=== PATIENT | female | born 1995 | race Caucasian/White ===

== ENCOUNTER 2018-04-03 13:00 | Inpatient (IN) | payer OTHER ==
[2018-04-03] MEDS ORDERED: NS 0.9% 1000 ML* 1,000 ML IV ONE ×3 (13:20→15:37)
[2018-04-03] MEDS ORDERED: Ondansetron INJ* 2 MG/ML VIAL IV ONE (13:20)
[2018-04-03] MEDS ORDERED: Ketorolac INJ* 30 MG/ML 1 ML VIAL IV PUSH ONE (13:20)
--- NOTE | 2018-04-03 13:35 | ED ---
Abdominal Pain/Female - HPI Summary HPI Summary: Pt. is a 22 y.o female who presents to the ER for fever, vomiting, and diarrhea. Pt. states that she started on Augmentin on Thursday for a sinus infection. Patient states that prior to Thursday she was having sinus pain for 3 weeks. Patient states her sinus pain is improving but started with nausea and vomiting 2 days ago and now has profuse watery diarrhea. Patient notes fever, chills and diffuse abdominal cramping. She has no past medical history. Denies sick contacts or recent travels. Symptoms are moderate in severity. Patient states she's having a bowel movement about every 20 minutes today. Denies passing blood in stools. No history of Crohn's disease, IBS, ulcerative colitis. No current modifying factors. - History of Current Complaint Chief Complaint: EDAbdPain Stated Complaint: DIARRHEA/NAUSEA/ABD PAIN Time Seen by Provider: 04/03/18 13:13 Hx Obtained From: Patient Pain Intensity: 6 Allergies/Adverse Reactions: Allergies Allergy/AdvReac Type Severity Reaction Status Date / Time No Known Allergies Allergy Verified 04/03/18 13:09 Home Medications: Home Medications Norelgestromin/Ethin.estradiol [Xulane Patch] 1 each TOPICAL WEEKLY 04/03/18 [ History Confirmed 04/03/18] PMH/Surg Hx/FS Hx/Imm Hx Previously Healthy: Yes Infectious Disease History: No Infectious Disease History: Denies: Traveled Outside the [place] in Last 30 Days - Family History Known Family History: Positive: Non-Contributory - Social History Occupation: Student Lives: Dormitory/Roommates Review of Systems Positive: Fever, Chills Eyes: Negative Positive: Other - Improving sinus pain Cardiovascular: Negative Positive: Cough. Negative: Shortness Of Breath Positive: Abdominal Pain, Vomiting, Diarrhea, Nausea Genitourinary: Negative Negative: dysuria Musculoskeletal: Negative Skin: Negative Neurological: Negative All Other Systems Reviewed And Are Negative: Yes Physical Exam Triage Information Reviewed: Yes Vital Signs On Initial Exam: Initial Vitals Temp Pulse Resp BP Pulse Ox 100.3 F 161 14 119/50 97 04/03/18 13:04 04/03/18 13:04 04/03/18 13:04 04/03/18 13:04 04/03/18 13:04 Vital Signs Reviewed: Yes Appearance: Positive: Thin - Pt. sitting up in bed, appears tired but nontoxic. Aunt present. Skin: Positive: Warm, Dry Head/Face: Positive: Normal Head/Face Inspection Eyes: Positive: Normal, EOMI, FRAN, Conjunctiva Clear ENT: Positive: Pharynx normal, TMs normal, Other - Oral mucosa is very dry and lips are Mild maxillary tenderness Neck: Positive: Supple, Nontender, No Lymphadenopathy. Negative: Nuchal Rigidity Respiratory/Lung Sounds: Positive: Clear to Auscultation, Breath Sounds Present Cardiovascular: Positive: Tachycardia Abdomen Description: Positive: Other: - Mild tenderness to all quadrants. Guarding Neurological: Positive: Normal, CN Intact II-III Psychiatric: Positive: Affect/Mood Appropriate Diagnostics - Vital Signs Vital Signs Temp Pulse Resp BP Pulse Ox 04/03/18 13:04 100.3 F 161 14 119/50 97 - Laboratory Result Diagrams: 04/03/18 13:31 04/03/18 13:31 Lab Statement: Any lab studies that have been ordered have been reviewed, and results considered in the medical decision making process. Abdominal Pain Fem Course/Dx - Course Course Of Treatment: Patient presenting with vomiting, diarrhea, fever and abdominal cramping. Low-grade fever in the ER of 100.3F, HR 161bpm, BP 119/50, O2 saturation 97% on RA which is normal. Clinically pt. looks very dehyrated. Will start on 2L NSS. Toradol ordered for pain and fever, zofran. Pending labs and stool cultures. Concerned for c diff. HR has improved but pt. has remained consistent tachycardia. CBC shows normal H an H and WBC. Na low at 128, K 3.1, Cl 91, anion gap 15, glucose 185 and CRP 237. Pending c diff at this time. Given pt.s dehydration, frequent diarrhea and ongoing tachycardia hospitalist was consulted for admission. I spoke with Dr. Vines and he has accepted pt. for admission. He would like pt. started on PO vancomycin. Results and plan discussed with pt. and parents who are now present. Pt. states she is feeling a bit better. - Diagnoses Provider Diagnoses: Diarrhea, Dehydration, Hyponatremia Discharge - Sign-Out/Discharge Documenting (check all that apply): Patient Departure - Discharge Plan Condition: Stable Disposition: ADMITTED TO [facility] Referrals: No Primary Care Phys,NOPCP [Primary Care Provider] - - Billing Disposition and Condition Condition: STABLE Disposition: Admitted to [facility]
[2018-04-03 13:45] LABS: Hematocrit 37 % (35-47); Hemoglobin 12.8 g/dl (12.0-16.0); Mean Corpuscular HGB Conc 34 g/dl (31-36); Mean Corpuscular Hemoglobin 28 pg (27-31); Mean Corpuscular Volume 81 fL (80-97); Mean Platelet Volume 7.1 fL (7.4-10.4); Platelet Count 300 10^3/ul (150-450); Red Blood Count 4.56 10^6/ul (4.00-5.40); Red Cell Distribution Width 13 % (10.5-15); White Blood Count 9.8 10^3/ul (3.5-10.8)
[2018-04-03 14:00] LABS: EGFR Non-African American 80.1 (>60)
[2018-04-03 14:43] LABS: ABS Basophils 0 10^3/ul (0-0.2); ABS Eosinophils 0 10^3/ul (0-0.6); ABS Lymphocytes 0.5 10^3/ul (1.0-4.8); ABS Monocytes 0.5 10^3/ul (0-0.8); ABS Neutrophils 8.8 10^3/ul (1.5-7.7)
[2018-04-03 14:47] LABS: ABS Neutrophils 9.3 10^3/ul (1.5-7.7)
[2018-04-03 15:12] LABS: Urine Appearance Cloudy; Urine Blood 1+ (Negative); Urine Color Yellow; Urine Ketones Negative (Negative); Urine Protein Negative (Negative); Urine Red Blood Cell Absent (Absent); Urine Specific Gravity 1.002 (1.010-1.030); Urine Urobilinogen Negative (Negative); Urine White Blood Cell 1+(6-10/hpf) (Absent)
[2018-04-03] MEDS ORDERED: Potassium Chloride LIQUID* 20 MEQ PACKET PO ONE (16:12)
[2018-04-03] MEDS ORDERED: Vancomycin(*) 500 MG VIAL ONE (17:00)
[2018-04-03] MEDS ORDERED: Ondansetron INJ* 2 MG/ML VIAL IV PRN (17:13)
[2018-04-03] MEDS ORDERED: oxyCODONE/Acetamin 5/325 MG* TAB PO PRN (17:13)
[2018-04-03] MEDS ORDERED: Acetaminophen TAB* 325 MG PO PRN (17:13)
[2018-04-03] MEDS: metroNIDAZOLE IV 500 MG/100ML* 500 MG/100 ML BAG IVPB SCH (18:25)
[2018-04-03] MEDS: Ciprofloxacin 400MG IVPREMIX(* 400 MG/200 ML BAG IVPB SCH (18:25)
[2018-04-03] MEDS ORDERED: Iohexol 300* (CONTRAST) 10 ML SDV IV ONE (19:15)
[2018-04-03] MEDS: NS 0.9% 1000 ML* 1,000 ML IV SCH (19:54)
--- NOTE | 2018-04-03 20:41 | HP ---
ADMISSION HISTORY AND PHYSICAL: DATE OF ADMISSION: 04/03/18 PRIMARY CARE PROVIDER: [facility]. HEALTHCARE PROXIES: Her parents. CODE STATUS: Full. SOURCE OF INFORMATION: History obtained from interview with the patient and her parents. RELIABILITY: Excellent. CHIEF COMPLAINT: Diarrhea. HISTORY OF PRESENT ILLNESS: This is a 22-year-old female with no significant past medical history except for anxiety, not on medications, who was last feeling well approximately 3 weeks prior to presentation before she started feeling an illness that felt like "a cold" with 2 weeks of sinus congestion, cough, rhinorrhea, and sore throat. She gradually started to get better; however, on recent trip to [place] about a week and half ago, she started to get chills and felt cold, which was approximately 7 days prior to presentation. She noted discomfort, described it as rhinorrhea, mucus, and a cough with a fever of 103 that lasted for approximately 3 days from Thursday through Thursday. On Thursday, prior to admission, she went to urgent care where she was diagnosed with a sinus infection and was started on Augmentin twice daily. Her sinuses started to feel better, she had less phlegm, and her fever abated by Thursday. , 2 days prior to presentation around 9 p.m., she started noting crampy abdominal pain associated with nausea and she was having more difficulty eating with decreased appetite. She had 2 to 3 episodes of emesis between Thursday and and on Thursday was feeling more bloated with associated nausea. Around 9 p.m. day prior to presentation, started to have diarrhea every 2 to 3 hours, which increased over the night and into to the day of presentation to every 20 minutes, associated with pain not relived with defecation and not associated with mucus. She described the pain at that time as a throbbing pain, but because of the increased frequency of diarrhea, the patient presented to the emergency room. In the emergency room, the patient was pleasant, still experiencing diarrhea frequently. She had no further episodes of emesis. Hospitalist service was consulted for admission. PAST MEDICAL HISTORY: Includes ureteral reflux as a baby that resolved without intervention; self-reported anxiety, not on medication. MEDICATIONS: She is on a control patch. ALLERGIES: No known drug allergies. FAMILY HISTORY: Significant for esophageal cancer in her father, IBS in her mother. SOCIAL HISTORY: No tobacco. Drinks 2 alcoholic drinks per month. 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 REVIEW OF SYSTEMS: As per HPI. Otherwise, all other systems negative. PHYSICAL EXAMINATION GENERAL: Sitting at approximately 30 degrees in bed, interactive, pleasant, in no apparent distress. VITAL SIGNS: When seen by this author, 127/74, heart rate was 101, respiratory rate is 15, 98% on room air, T-max in the emergency room is 100.3. HEENT: Her oropharynx is clear. She has dry mucous membranes. Sclerae are anicteric. NECK: She has non-elevated JVD. She has no cervical or supraclavicular lymphadenopathy. LUNGS: Clear to auscultation. HEART: She has a tachycardic heart rate without murmurs, rubs, or gallops. ABDOMEN: Soft. Diffuse tenderness throughout. Mild distention. No rebound or guarding. Positive bowel sounds throughout. EXTREMITIES: Warm and well perfused. No clubbing, cyanosis, or edema. She has less than 2 second cap refill on all of her fingers. NEUROLOGIC: She is alert and oriented x3. Her cranial nerves are intact. PSYCHIATRIC: She has no apparent anxiety, agitation, or depression. DIAGNOSTIC STUDIES/LAB DATA: Labs reviewed, notable for a white blood cell count of 9.8 with a left shift, 84% neutrophils, 10% bands. Sodium of 128, potassium of 3.1, chloride 91, glucose 185. CRP is 237. Beta hCG is negative. Urine is bland, 1+ blood, 1+ white blood cell count, no bacteria. C. diff exam is currently negative and fecal lactoferrin is negative. Data reviewed. Chest x-ray: No acute cardiopulmonary findings. ASSESSMENT AND PLAN: This is a 22-year-old female presenting with a 3-week syndrome of upper respiratory symptoms punctuated by several days of fever, nausea and vomiting worsening to include frequent diarrhea, now presenting to the emergency room. 1. Diarrhea. In the absence of fecal lactoferrin, infectious etiology is significantly lower. In the setting of recent antibiotics, suspicion for C. diff was high, although PCR is negative, which has very good sensitivity. We will not treat for C. diff at this time. She does not meet sepsis criteria as there is no end organ damage and it is not entirely clear that she has an infection other than the left shift, elevated CRP, nonspecific and fevers. It is quite possible that the same viral syndrome she has been battling for the last several weeks is now the etiology of her gastrointestinal illness. We will admit to the hospital OBV, treat symptomatically with fluids, continue to monitor with telemetry to target lower heart rate, repeat labs in the morning. If worsening leukocytosis and/or other source identified, we would recommend low threshold for antibiotics. We will check 2 -view abdominal film now, could potentially move to CAT scan of the abdomen, although we will try to withhold this test if not necessary given high risk in a young female. 2. Fever. As indicated above, no clear source. Elevated CRP in the setting of recent viral syndrome versus sinus infection. We will check influenza rapid now. Continue to trend. Can consider ID consultation if no improvement. 3. Tachycardia in the setting of dehydration. Fluids as above. 4. Hyponatremia. Suspect hypovolemic. Continue with IV fluids as above. Recheck in the morning. 5. Hypokalemia. The patient received replacement in the emergency room. 6. DVT prophylaxis: Low risk. Ambulate ad leila. [id number]/[facility] #: [id number] [facility]NER[facility]
[2018-04-03] MEDS: NS 0.9% 1000 ML* 2,000 ML IV ONE ×2 (22:34→23:18)
[2018-04-03] MEDS ORDERED: Ketorolac INJ* 15 MG/ML 1 ML VIAL IV PUSH ONE (22:44)
--- NOTE | 2018-04-03 23:19 | PN ---
Hospitalist Progress Note Date of Service: 04/03/[address] scan findings. Discussed resulted with family and patient. Patient examined noted to be tender in the LLQ and RLQ. Pt abd mildly distended. Pt lungs cta, tachy. Pt with no rebound tenderness or guarding. Called Surgeon on-call. At this point scan reviewed by surgery and at this point plan is to avoid ng tube unless vomiting and to continued iv abx and ivf, patient will be seen in morning by surgery. Vs are noted to be 104/60 tachy 130 and temp 101.3 Updated Attending as well on plan of care for tonight and to call surgery with any further concerns.
[2018-04-04] MEDS: NS 0.9% 1000 ML* 1,000 ML IV SCH ×2 (02:03→05:32)
[2018-04-04] MEDS: metroNIDAZOLE IV 500 MG/100ML* 500 MG/100 ML BAG IVPB SCH ×2 (02:26→13:07)
[2018-04-04] MEDS ORDERED: Morphine VIAL* 4 MG/ML VIAL (1 ml vial) IV PRN ×2 (02:49→09:03)
[2018-04-04] MEDS ORDERED: Ketorolac INJ* 15 MG/ML 1 ML VIAL IV PUSH PRN (02:51)
[2018-04-04 05:04] LABS: ABS Basophils 0 10^3/ul (0-0.2); ABS Eosinophils 0 10^3/ul (0-0.6); ABS Lymphocytes 0.7 10^3/ul (1.0-4.8); ABS Monocytes 0.6 10^3/ul (0-0.8); ABS Neutrophils 10.5 10^3/ul (1.5-7.7); ABS Nucleated RBC 0 10^3/ul; Eosinophil % 0 % (0-6); Hematocrit 29 % (35-47); Hemoglobin 9.8 g/dl (12.0-16.0); Lymphocyte % 5.6 % (25-47); Mean Corpuscular HGB Conc 34 g/dl (31-36); Mean Corpuscular Hemoglobin 29 pg (27-31); Mean Corpuscular Volume 83 fL (80-97); Mean Platelet Volume 6.9 fL (7.4-10.4); Nucleated Red Blood Cells % 0; Platelet Count 232 10^3/ul (150-450); Red Blood Count 3.43 10^6/ul (4.00-5.40); Red Cell Distribution Width 13 % (10.5-15); White Blood Count 11.8 10^3/ul (3.5-10.8)
[2018-04-04 05:26] LABS: EGFR Non-African American 102.3 (>60)
[2018-04-04] MEDS: Ciprofloxacin 400MG IVPREMIX(* 400 MG/200 ML BAG IVPB SCH (05:32)
[2018-04-04] MEDS ORDERED: Ondansetron INJ* 2 MG/ML VIAL IV ONE (09:01)
[2018-04-04] MEDS ORDERED: Dexamethasone IV* 4 MG/ML 1 ML (4 MG) IV SLOW PU ONE (09:01)
[2018-04-04] MEDS ORDERED: Buffered Lidocaine 0.9% SYRIN* 5 ML/SYR SYRINGE INTRADERM ONE (09:01)
[2018-04-04] MEDS ORDERED: Famotidine IV* 10 MG/ML 2 ML (20 mg) IV ONE (09:01)
[2018-04-04] MEDS ORDERED: DiMENhydriNATE IV* 50 MG/ML VIAL IV PUSH PRN (09:03)
[2018-04-04] MEDS ORDERED: PROCHLORPERAZINE INJ 5 MG/ML 2 ML VIAL IV PRN (09:03)
[2018-04-04] MEDS ORDERED: fentaNYL* 50 MCG/ML 2 ML VIAL (100 MCG VIAL) IV PRN (09:03)
[2018-04-04] MEDS ORDERED: Naloxone* 0.4 MG/ML 1 ML VIAL IV PRN (09:03)
[2018-04-04] MEDS ORDERED: fentaNYL* 50 MCG/ML 2 ML VIAL (100 MCG VIAL) ONE (09:07)
[2018-04-04] MEDS ORDERED: Midazolam* 1 MG/ML 5 ML VIAL (5 MG) ONE (09:07)
[2018-04-04] MEDS ORDERED: Atracurium* 10 MG/ML 10 ML VIAL ONE (09:07)
[2018-04-04] MEDS ORDERED: KETAMINE HCL* 50 MG/ML 10 ML VIAL ONE (09:07)
[2018-04-04] MEDS ORDERED: ZOSYN 3.375 GM x ONE DOSE over 30 miuntes IVPB ×2 (10:00)
[2018-04-04] MEDS ORDERED: Bupivacaine 0.25% EPI 200,000* 30 ML SDV ONE (10:21)
[2018-04-04] MEDS ORDERED: Bupivacaine 0.25% SDV PF* 10 ML VIAL INJ ONE (10:21)
[2018-04-04] MEDS ORDERED: Dexamethasone IV* 4 MG/ML 1 ML (4 MG) ONE (10:43)
[2018-04-04] MEDS ORDERED: Succinylcholine* 20 MG/ML 10 ML VIAL ONE (10:43)
[2018-04-04] MEDS ORDERED: Propofol* 10 MG/ML 20 ML BTL IV PUSH ONE (10:43)
[2018-04-04] MEDS ORDERED: Glycopyrrolate IV* 0.2 MG/ML 1 ML VIAL ONE (10:43)
[2018-04-04] MEDS ORDERED: Famotidine IV* 10 MG/ML 2 ML (20 mg) ONE (10:43)
[2018-04-04] MEDS ORDERED: Neostigmine Methylsulfate* 1 MG/ML 10 ML VIAL (1 mg/ml) ONE (10:43)
[2018-04-04] MEDS ORDERED: Ondansetron INJ* 2 MG/ML VIAL ONE (10:43)
[2018-04-04] MEDS ORDERED: Phenylephrine INJ* 10 MG/ML 1 ML VIAL (10 MG) ONE (10:56)
[2018-04-04] MEDS ORDERED: Lidocaine 2% PF * 5 ML VIAL ONE (10:56)
[2018-04-04] MEDS ORDERED: Morphine VIAL* 10 MG/ML 1 ML VIAL ONE (11:21)
[2018-04-04] MEDS ORDERED: HYDROmorphone INJ* 2 MG/ML CARPUJECT SYRINGE IV PRN (11:58)
[2018-04-04] MEDS ORDERED: Acetaminophen TAB* 325 MG PO PRN (11:58)
[2018-04-04] MEDS ORDERED: oxyCODONE/Acetamin 5/325 MG* TAB PO PRN (11:58)
--- NOTE | 2018-04-04 12:04 | BRIEFOPN ---
Brief Operative Note - Surgery Procedures: Pre-OP Diagnoses: abdominal pain Post-op Diagnosis: acute appendicitis- perforated, peritonitis Procedure: Laparoscopic appendectomy, abdominal washout Surgeon: Jd Asst: none Anethesia: GETA EBL: minimal IVF: crystalloid Specimen: appendix Drains: #7 Fadi at pelvis Honeycutt 400cc and removed at end of case
[2018-04-04] MEDS ORDERED: Levalbuterol 0.63MG/3ML NEB* UNIT OF USE INH ONE (12:08)
[2018-04-04] MEDS: Heparin VIAL(*) 5000 UNITS/ML VIAL (FIVE THOUSAND) SUBCUT SCH ×2 (14:54→23:07)
[2018-04-04] MEDS: Piperacillin/Tazobactam VIAL*) 3.375 GM in NS 0.9% 100 ML* 100 ML IVPB SCH ×2 (15:46→23:01)
[2018-04-04] MEDS ORDERED: NORELGESTROMIN TRANSDERM SCH (16:00)
[2018-04-04] MEDS ORDERED: ETHINYL ESTRADIOL TRANSDERM SCH (16:00)
[2018-04-04] MEDS: Ketorolac INJ* 30 MG/ML 1 ML VIAL IV PRN (18:03)
--- NOTE | 2018-04-04 19:20 | PN ---
Subjective Date of Service: 04/04/18 Interval History: Pt examined briefly before being taken for appendicitis surgery. Post op she has been ambulating. 5/10 abdominal pain. No nausea. States her initial symptoms (other than URI symptoms) were abdominal pain last night along with reduced appetites, then diarrhea next night Thursday. Objective Active Medications: Acetaminophen (Tylenol Tab*) 650 mg PO Q4H PRN PRN Reason: Pain Or Temperature >101 F Heparin Sodium (Porcine) (Heparin Vial(*)) 5,000 units SUBCUT Q8HR [facility] Last Admin: 04/04/18 14:54 Dose: 5,000 units Hydromorphone HCl (Dilaudid Inj*) 0.5 mg IV Q1H PRN PRN Reason: Pain - severe Lactated Ringer's (Lactated Ringers 1000 Ml Bag*) 1,000 mls @ 100 mls/hr IV PER RATE [facility] Last Admin: 04/04/18 13:30 Dose: 100 mls/hr Piperacillin Sod/Tazobactam (Sod 3.375 gm/ Sodium Chloride) 100 mls @ 25 mls/ hr IVPB Q8H [facility] Last Admin: 04/04/18 15:46 Dose: 25 mls/hr Influenza Virus Vaccine (Fluarix *Quad* 2018-*) 0.5 ml IM .ONCE ONE Stop: 04/05/18 09:01 Ketorolac Tromethamine (Toradol Inj*) 30 mg IV Q6H PRN PRN Reason: PAIN Stop: 04/06/18 12:00 Last Admin: 04/04/18 18:03 Dose: 30 mg Pto: Norelgestromin And Ethinyl Estradiol Td 150/35mcg/Day 1 dose TRANSDERM WEEKLY [facility] Last Admin: 04/04/18 15:54 Dose: 1 dose Ondansetron HCl (Zofran Inj*) 4 mg IV Q4H PRN PRN Reason: NAUSEA/VOMITING Oxycodone/Acetaminophen (Percocet 5/325 Tab*) 1 tab PO Q4H PRN PRN Reason: PAIN Vital Signs - 8 hr 04/04/18 04/04/18 04/04/18 11:56 12:00 12:05 Temperature 98.4 F Pulse Rate Respiratory 20 16 16 Rate Blood Pressure (mmHg) O2 Sat by Pulse Oximetry 04/04/18 04/04/18 04/04/18 12:10 12:15 12:16 Temperature Pulse Rate 110 106 Respiratory 16 34 33 Rate Blood Pressure 127/74 (mmHg) O2 Sat by Pulse 100 100 Oximetry 04/04/18 04/04/18 04/04/18 12:30 12:45 13:00 Temperature Pulse Rate 111 103 92 Respiratory 16 16 Rate Blood Pressure 131/81 134/76 129/70 (mmHg) O2 Sat by Pulse 100 100 100 Oximetry 04/04/18 04/04/18 04/04/18 13:01 13:21 13:33 Temperature 97.3 F Pulse Rate 85 102 Respiratory 24 18 Rate Blood Pressure 110/67 (mmHg) O2 Sat by Pulse 100 100 Oximetry 04/04/18 04/04/18 04/04/18 13:56 14:36 15:18 Temperature 97.3 F 98.3 F 97.7 F Pulse Rate 102 91 87 Respiratory 24 22 18 Rate Blood Pressure 110/67 106/62 112/61 (mmHg) O2 Sat by Pulse 100 99 100 Oximetry 04/04/18 04/04/18 04/04/18 15:42 15:43 16:00 Temperature Pulse Rate Respiratory 18 20 Rate Blood Pressure (mmHg) O2 Sat by Pulse 97 Oximetry 04/04/18 17:31 Temperature 97.6 F Pulse Rate 90 Respiratory 16 Rate Blood Pressure 107/67 (mmHg) O2 Sat by Pulse 97 Oximetry Oxygen Devices in Use Now: Nasal Cannula Appearance: NAD Eyes: No Scleral Icterus, PERRLA Ears/Nose/Mouth/Throat: NL Teeth, Lips, Gums, Mucous Membranes Moist Neck: NL Appearance and Movements; NL JVP Respiratory: Symmetrical Chest Expansion and Respiratory Effort, Clear to Auscultation Cardiovascular: NL Sounds; No Murmurs; No JVD Abdominal: - - FIDENCIO drain with serosanguinus fluid in RLQ. slight tender. Extremities: No Edema, No Clubbing, Cyanosis Skin: No Rash or Ulcers, No Nodules or Sclerosis Neurological: Alert and Oriented x 3, NL Sensation, NL Muscle Strength and Tone Nutrition: Taking PO's Result Diagrams: 04/04/18 04:45 04/04/18 04:45 Additional Lab and Data: Laboratory Results - last 24 hr 04/03/18 04/04/18 04/04/18 23:30 04:45 04:45 WBC 11.8 H RBC 3.43 L Hgb 9.8 L Hct 29 L MCV 83 MCH 29 MCHC 34 RDW 13 Plt Count 232 MPV 6.9 L Neut % (Auto) 89.0 H Lymph % (Auto) 5.6 L Harlan % (Auto) 5.2 Eos % (Auto) 0 Baso % (Auto) 0.2 Absolute Neuts (auto) 10.5 H Absolute Lymphs (auto) 0.7 L Absolute Monos (auto) 0.6 Absolute Eos (auto) 0 Absolute Basos (auto) 0 Absolute Nucleated RBC 0 Nucleated RBC % 0 Sodium 137 D Potassium 3.3 L Chloride 109 Carbon Dioxide 20 L Anion Gap 8 BUN 5 L Creatinine 0.72 Est GFR ( Amer) 123.7 Est GFR (Non-Af Amer) 102.3 BUN/Creatinine Ratio 6.9 L Glucose 123 H Lactic Acid 2.4 H* Calcium 7.4 L 04/04/18 04:45 WBC RBC Hgb Hct MCV MCH MCHC RDW Plt Count MPV Neut % (Auto) Lymph % (Auto) Harlan % (Auto) Eos % (Auto) Baso % (Auto) Absolute Neuts (auto) Absolute Lymphs (auto) Absolute Monos (auto) Absolute Eos (auto) Absolute Basos (auto) Absolute Nucleated RBC Nucleated RBC % Sodium Potassium Chloride Carbon Dioxide Anion Gap BUN Creatinine Est GFR ( Amer) Est GFR (Non-Af Amer) BUN/Creatinine Ratio Glucose Lactic Acid 0.9 Calcium Microbiology and Other Data: Microbiology 04/04/18 11:58 Abdomen Skin and Soft Tissue MRSA/MSSA (PCR - Final Mrsa Negative S.aureus Negative 04/04/18 11:58 Abdomen Gram Stain - Final 04/03/18 14:56 Urine Urine Culture - Preliminary Escherichia Coli 04/03/18 15:05 Stool Cryptosporidium/Giardia - Final Neg Cryptosporidium/Giardia 04/03/18 17:33 Nasal Influenza Types A,B Antigen - Final Specimen received for Influenza A/B Molecular testing 04/03/18 13:34 Stool Stool Gross Appearance - Final 04/03/18 13:34 Stool C. difficile DNA Amplification - Final 027 Presumptive NEGATIVE Toxigenic C.diff NEGATIVE 04/03/18 13:33 Stool Stool Gross Appearance - Final 04/03/18 13:33 Stool Stool Lactoferrin - Final Assess/Plan/Problems-Billing Assessment: 22 yo female no PMH p/w few weeks of URI symptoms followed by abdominal pain, reduced appetite and then diarrhea. CT abd/pelvis concerning for appendiciits. s /p appendectomy on 04/04 with ruptured appendicitis. #Appendicitis - appreciate Dr. Miles who performed appendectomy and will be assuming care going forward - zosyn - f/u cultures - pain control - ADAT - IVF - wean O2 as tolerated DVT ppx heparin 5000U TID. CODE: FULL Status and Disposition: inpatient now on surgery service.
--- NOTE | 2018-04-04 23:02 | OP ---
CC: [facility] * DATE OF OPERATION: 04/04/18 - ROOM #331 DATE OF : 89 SURGEON: Kevin Miles MD PROCESSING LEAD: None. ANESTHESIOLOGIST: Dr. Escobedo. ANESTHESIA: General anesthesia. PRE-OP DIAGNOSIS: Abdominal pain, rule out appendicitis. POST-OP DIAGNOSES: Perforated appendicitis and peritonitis. OPERATIVE PROCEDURE: Diagnostic laparoscopy and appendectomy, abdominal washout. INDICATIONS: Ms. Sommer is a 22-year-old female, who I saw in consultation. After discussing the case with hospitalist service, she underwent a CT scan last night and these images were reviewed. It was concerning for possible appendicitis with secondary small bowel obstruction. The patient had worsening abdominal pain and my recommendation was for taking her to the operating room for a laparoscopy. I outlined the details of the procedure going over the risks , benefits, and alternatives, as well as the possibility of not finding acute appendicitis, possible need for drainage and possible need for open procedure. The patient agreed and signed consent. She understood the possible complications, which included but not limited to bleeding, infection, bowel or bladder injury, need for additional or open procedures, abscess formation, wound infection, and hernia formation. ESTIMATED BLOOD LOSS: Minimal blood loss. FLUIDS: Minimal crystalloid fluid given. SPECIMENS: 1. Appendix. 2. Cultures of peritoneal fluid. DRAINS: #7 FIDENCIO drain left in the pelvis in the right gutter as well as a Chavez catheter where 400 cc drained during the procedure and it was removed at the end of the procedure. DESCRIPTION OF PROCEDURE: The patient was identified in the preoperative area, marked. Consent was signed. She was taken to the operating room, placed on the operating table in the supine position. Preoperative antibiotics were given. Sequential devices were placed on bilateral lower extremities. General anesthesia was induced. The patient's abdomen was prepped and draped in the standard surgical fashion and a time-out was performed. Infraumbilical incision was made. This was deepened down to the anterior fascia , which was elevated, incised and entry into the abdominal cavity was made under direct vision. A 12-mm trocar was inserted and the abdomen was allowed to insufflate to a pressure of 15 mmHg. The patient tolerated the insufflation well. Camera was inserted through this. There was significant murky fluid throughout. Additional trocars were then placed in the following position: A 5 mm in the suprapubic area and 5 mm in the left lower quadrant. Attention was turned towards the pelvis. Fluid was drained out. We also got swabs for both aerobic and anaerobic cultures. We were able to slowly get the small bowel out of the pelvis and extend this up to the right upper quadrant. This exposed the retroperitoneum. Dilated and inflamed appendix with obvious mid portion perforation was identified. We were able to take the attachments of the lateral side wall as well as inflammatory attachments of the cecum to the side wall until the cecum could be brought towards the midline. We then made a window at the base of the appendix through healthy tissue and I took the appendix at this site with a 45-mm last ILEANA stapling device. We took care not to touch the rest of the appendix where the perforation was in the mid portion. Both blunt and sharp dissections were used to free the peritoneum off the appendiceal mesentery, which was then transected with a 45-mm last ILEANA stapling device. The appendix was then placed in the endoscopic retrieval bag and placed over the liver. Next, we utilized 3 L of warm saline to irrigate out the abdomen after suctioning all the murky fluid that we had found. Fluid was noted above the liver, above the stomach, as well as in the pelvis. We then ran the small bowel freeing up inflammatory adhesions trying to remove exudative tissue as best as we could. These were then irrigated. We cleared up as much fluid as we could and then placed a #7 FIDENCIO drain into the pelvis and extending this up towards to the right paracolic gutter. The table was repositioned back to neutral. Hemostasis was excellent. We then allowed the abdomen to collapse. Trocars were removed under direct vision. The anterior fascia at the umbilical port site was reapproximated with 0 Polysorb suture in a [id number] fashion. The umbilical incision and the left lower quadrant incision were closed with 4-0 Monocryl subcuticular sutures and we utilized a 3-0 Prolene suture to suture the FIDENCIO drain to the lower incision. Sterile dressing was applied. The patient tolerated the procedure well, was woken up in the OR and transferred to the PACU in stable condition. [id number]/[facility] #: [id number] GLADYS
[2018-04-05] MEDS: Ketorolac INJ* 30 MG/ML 1 ML VIAL IV PRN ×4 (03:40→22:42)
[2018-04-05 05:31] LABS: ABS Basophils 0 10^3/ul (0-0.2); ABS Eosinophils 0 10^3/ul (0-0.6); ABS Lymphocytes 0.8 10^3/ul (1.0-4.8); ABS Monocytes 0.8 10^3/ul (0-0.8); ABS Neutrophils 11.1 10^3/ul (1.5-7.7); ABS Nucleated RBC 0 10^3/ul; Eosinophil % 0 % (0-6); Hematocrit 28 % (35-47); Hemoglobin 9.4 g/dl (12.0-16.0); Lymphocyte % 6.6 % (25-47); Mean Corpuscular HGB Conc 33 g/dl (31-36); Mean Corpuscular Hemoglobin 27 pg (27-31); Mean Corpuscular Volume 83 fL (80-97); Mean Platelet Volume 7.5 fL (7.4-10.4); Nucleated Red Blood Cells % 0; Platelet Count 287 10^3/ul (150-450); Red Blood Count 3.41 10^6/ul (4.00-5.40); Red Cell Distribution Width 13 % (10.5-15); White Blood Count 12.7 10^3/ul (3.5-10.8)
[2018-04-05 05:48] LABS: EGFR Non-African American 121.5 (>60)
[2018-04-05] MEDS: Heparin VIAL(*) 5000 UNITS/ML VIAL (FIVE THOUSAND) SUBCUT SCH ×3 (06:22→22:46)
[2018-04-05] MEDS: Piperacillin/Tazobactam VIAL*) 3.375 GM in NS 0.9% 100 ML* 100 ML IVPB SCH ×3 (06:22→23:10)
[2018-04-05] MEDS ORDERED: ETHINYL ESTRADIOL TRANSDERM SCH (09:12)
[2018-04-05] MEDS ORDERED: NORELGESTROMIN TRANSDERM SCH (09:12)
--- NOTE | 2018-04-05 11:40 | PN ---
Progress Note - Progress Note Date of Service: 04/05/18 SOAP: Subjective: patient seen and examined. Patient is overall feeling well. She denies any nausea. She is not passing flatus. She had 1 loose bowel movement earlier today. abdominal pain controlled with narcotics. Objective: Temp Pulse Resp BP Pulse Ox 98.1 F 85 16 119/63 98 04/05/18 07:34 04/05/18 07:34 04/05/18 08:00 04/05/18 07:34 04/05/18 07:34 Intake & Output 04/04/18 04/05/18 04/05/18 22:59 06:59 14:59 Intake Total 2030 1095 Output Total 750 1105 300 Balance 1280 -10 -300 Weight 125 lb Alert and oriented 3, in no apparent distress. lungs clear to auscultation bilaterally. Abdomen: Soft, distended, tender. Dressings clean dry and intact. Bowel sounds hypoactive. Extremities within normal limits labs noted Assessment: postop day 1 laparoscopic appendectomy and abdominal washout. Resolving sepsis Plan: continue liquid diet . Continue antibiotics. Pain control possible discharge home tomorrow on oral antibiotics.
[2018-04-06] MEDS: Ondansetron INJ* 2 MG/ML VIAL IV PRN ×3 (04:29→22:36)
[2018-04-06] MEDS: Ketorolac INJ* 30 MG/ML 1 ML VIAL IV PRN ×2 (04:48→10:35)
[2018-04-06] MEDS: Heparin VIAL(*) 5000 UNITS/ML VIAL (FIVE THOUSAND) SUBCUT SCH ×3 (06:25→22:36)
[2018-04-06] MEDS: Piperacillin/Tazobactam VIAL*) 3.375 GM in NS 0.9% 100 ML* 100 ML IVPB SCH ×3 (06:27→22:29)
--- NOTE | 2018-04-06 10:19 | PN ---
Progress Note - Progress Note Date of Service: 04/06/18 Note: S: POD #2. On Zosyn. Vomiting this a.m. (~ 200 cc clear liq). Woke up nauseated. Had not had anything to eat or drink this a.m., and only water overnight. She had been doing well yesterday on full liq diet. Some pain, but not severe. Current Medications Acetaminophen (Tylenol Tab*) 650 mg PO Q4H PRN PRN Reason: Pain Or Temperature >101 F Heparin Sodium (Porcine) (Heparin Vial(*)) 5,000 units SUBCUT Q8HR [facility] Last Admin: 04/06/18 06:25 Dose: 5,000 units Hydromorphone HCl (Dilaudid Inj*) 0.5 mg IV Q1H PRN PRN Reason: Pain - severe Lactated Ringer's (Lactated Ringers 1000 Ml Bag*) 1,000 mls @ 100 mls/hr IV PER RATE [facility] Last Admin: 04/06/18 04:47 Dose: 100 mls/hr Piperacillin Sod/Tazobactam (Sod 3.375 gm/ Sodium Chloride) 100 mls @ 25 mls/ hr IVPB Q8H [facility] Last Admin: 04/06/18 06:27 Dose: 25 mls/hr Ketorolac Tromethamine (Toradol Inj*) 30 mg IV Q6H PRN PRN Reason: PAIN Stop: 04/06/18 12:00 Last Admin: 04/06/18 04:48 Dose: 30 mg Metoclopramide HCl (Reglan Iv*) 10 mg IV Q6H PRN PRN Reason: NAUSEA/VOMITING Norelgestromin/Ethinyl Estradiol (Xulane 150/35 Patch) 1 each TRANSDERM WEEKLY [facility] Ondansetron HCl (Zofran Inj*) 4 mg IV Q4H PRN PRN Reason: NAUSEA/VOMITING Last Admin: 04/06/18 09:09 Dose: 4 mg Oxycodone/Acetaminophen (Percocet 5/325 Tab*) 1 tab PO Q4H PRN PRN Reason: PAIN O: Vital Signs - 8 hr 04/06/18 04/06/18 04/06/18 03:23 07:24 08:35 Temperature 98.1 F 98.3 F Pulse Rate 84 82 Respiratory 16 16 16 Rate Blood Pressure 113/55 109/58 (mmHg) O2 Sat by Pulse 98 96 96 Oximetry Intake and Output Last 24 Hours 04/04/18 04/05/18 04/06/18 04/07/18 06:59 06:59 06:59 06:59 Intake Total 3000 3125 5305 Output Total 1925 2205 675 Balance 3000 1200 3100 -675 Weight 125 lb 125 lb Intake: IV Fluids 3000 995 3005 ABX - ZOSYN 105 LR 995 2900 IVPB 100 ABX - ZOSYN 100 Oral 0 2030 2300 Output: FIDENCIO #1 125 205 75 Urine 1800 2000 400 Emesis 200 Other: # Bowel Movements 1 1 Estimated Stool Amount Small # Voids 2 Gen: sitting up in chair; appears uncomfortable Heart: reg Lungs: clear to bases Abd: distended, tympanitic; BS absent to hypoactive; FIDENCIO drainage: fairly clear, light yellow drainage; soft; mild diffuse tenderness to palp C&S: cultures from surgery still pend A: s/p lap appy for acute ruptured appendicitis; prob ileus P: cont IVF; back diet down to sips of H2O and chips; add Reglan to antiemetics cont Zosyn
[2018-04-06] MEDS: Metoclopramide IV* 5 MG/ML 2 ML VIAL IV PRN (10:35)
[2018-04-06] MEDS: D5W 1/2 NS KCl 20 Meq 1000 ML* 1,000 ML IV SCH (13:42)
[2018-04-06] MEDS ORDERED: Morphine VIAL* 4 MG/ML VIAL (1 ml vial) IV PRN (18:10)
[2018-04-06] MEDS ORDERED: Morphine VIAL* 4 MG/ML VIAL (1 ml vial) ONE (18:12)
[2018-04-07] MEDS: D5W 1/2 NS KCl 20 Meq 1000 ML* 1,000 ML IV SCH ×3 (00:15→21:46)
[2018-04-07] MEDS: Metoclopramide IV* 5 MG/ML 2 ML VIAL IV PRN ×4 (00:25→22:55)
[2018-04-07] MEDS: Ondansetron INJ* 2 MG/ML VIAL IV PRN ×4 (03:20→19:25)
[2018-04-07] MEDS: Heparin VIAL(*) 5000 UNITS/ML VIAL (FIVE THOUSAND) SUBCUT SCH ×3 (06:18→22:49)
[2018-04-07] MEDS: Acetaminophen ADULT LIQ* 650 MG/20.3 ML UDC PO PRN ×3 (06:20→17:19)
[2018-04-07] MEDS: Piperacillin/Tazobactam VIAL*) 3.375 GM in NS 0.9% 100 ML* 100 ML IVPB SCH ×3 (06:21→22:57)
--- NOTE | 2018-04-07 09:50 | PN ---
Progress Note - Progress Note Date of Service: 04/07/18 SOAP: Subjective:pod#3 s/p lap appy,perforated hungry;one emesis overnight;no nausea now;passing flatus with loose stools;good pain relief with Tylenol [] Objective:afeb;lungs:clear bilat;heart:RRR;abd:+bs,soft and less bloated;FIDENCIO serous,exit site c/d/i;ext:nontender calves,no edema Vital Signs Temp 98.3 F 04/07/18 07:22 Pulse 79 04/07/18 07:22 Resp 16 04/07/18 08:00 BP 115/57 04/07/18 07:22 Pulse Ox 97 04/07/18 07:22 Intake & Output 04/06/18 04/07/18 04/07/18 18:59 06:59 18:59 Intake Total 1001 2213 Output Total 1575 2740 630 Balance -288 -597 -042 Intake: IV Fluids 839 1763 ABX - ZOSYN 209 D5W 1/2 NS 20 meq KCL 1554 LR 819 NS (0.9%) 20 IVPB 112 ABX - ZOSYN 112 Oral 50 450 Output: FIDENCIO #1 275 240 30 Urine 1100 2400 600 Emesis 200 100 Other: # Bowel Movements 1 Estimated Stool Amount Small Small [] Assessment:less distended and hungry [] Plan:try clears cont IVF and abx ambulate,inspiron discuss with Dr Miles timing of FIDENCIO removal []
[2018-04-08] MEDS: Piperacillin/Tazobactam VIAL*) 3.375 GM in NS 0.9% 100 ML* 100 ML IVPB SCH (06:24)
[2018-04-08] MEDS: Heparin VIAL(*) 5000 UNITS/ML VIAL (FIVE THOUSAND) SUBCUT SCH ×2 (06:26→13:58)
[2018-04-08] MEDS: D5W 1/2 NS KCl 20 Meq 1000 ML* 1,000 ML IV SCH (07:54)
[2018-04-08 13:04] VITALS: BP 103/75
--- NOTE | 2018-04-08 14:00 | PN ---
Progress Note - Progress Note Date of Service: 04/08/18 SOAP: Subjective:pod#4 s/p lap appy,perf'd []tolerating soft diet,ambulating,wants to go home Objective: Vital Signs Temp 97.6 F 04/08/18 11:05 Pulse 84 04/08/18 11:04 Resp 12 04/08/18 11:04 BP 103/75 04/08/18 11:04 Pulse Ox 98 04/08/18 11:04 Intake & Output 04/07/18 04/08/18 04/08/18 18:59 06:59 18:59 Intake Total 1003 2318 Output Total 2125 2625 1250 Balance -3911 -738 -5588 Intake: IV Fluids 413 1098 ABX - ZOSYN 108 D5W 1/2 NS 20 meq KCL 413 990 IVPB 110 110 ABX - ZOSYN 110 110 Oral 480 1110 Output: FIDENCIO #1 50 Urine 2000 2625 1250 Emesis 75 Other: Estimated Void Medium Date of Last Bowel 04/07/18 04/08/18 Movement # Bowel Movements 3 1 1 Estimated Stool Amount Small Medium Small # Voids 1 lungs:clear bilat;abd:+bs,soft,mild distention,much improved;incisions c/d/i,no erythema or drainage;exit site from previous FIDENCIO drain covered with dressing,no drainage;ext:nontender,no edema [] Assessment:doing well [] Plan:disch home today to parent's home;instructions reviewed;Amoxicillin/clav susp prescribed for 6 doses;office visit in 1 week []
== END 2018-04-08 15:10 | disposition home or self-care (01) | DRG 225 ==
LOC: ED 13:00 → MED 17:13 → OBSVTOIN 17:13 → SSU 04-04 11:58
PROVIDERS: ADMIT Internal Medicine; ATTEND Surgery
PROC: 0DTJ4ZZ Resection of Appendix, Percutaneous Endoscopic Approach (ICD-10-PCS; principal; 2018-04-04 10:20)
DX: K35.32 Acute appendicitis with perforation, localized peritonitis, and gangrene, without abscess (principal); E87.1 Hypo-osmolality and hyponatremia; K56.7 Ileus, unspecified; E86.0 Dehydration; J02.9 Acute pharyngitis, unspecified; R00.0 Tachycardia, unspecified; E87.6 Hypokalemia; Z80.0 Family history of malignant neoplasm of digestive organs; Z23 Encounter for immunization; R11.2 Nausea with vomiting, unspecified
CPT/HCPCS: 36415; 71046; 74019; 74177; 80048; 80053; 81003; 81015; 83036; 83605; 83630; 84702; 85025; 85060; 86140; 87040; 87045; 87046; 87070; 87073; 87077; 87086; 87177; 87186; 87205; 87209; 87328; 87329; 87493; 87640; 87641; 87899; 88304; 90686; 99284; A9270-GY; C1776; J0330; J0744; J1100; J1644; J1885; J2250; J2270; J2405; J2543; J2704; J2710; J2765; J3010; J3490; Q9967